=== PATIENT | male | born 1935 | race Caucasian/White ===

== ENCOUNTER 2016-11-14 01:50 | Emergency (ER) | payer MEDICARE, OTHER ==
[2016-11-14 02:12] LABS: CKMB 2.5 ng/ml (0.0-5.0); TROP-I < 0.30 NG/ML (0.00-0.30)
[2016-11-14 02:16] LABS: BASO % 0.1 % (0.2-1.2); EOS % 0.2 % (0.8-7.0); GRAN # 11.6 10_X3_uL (1.8-5.4); GRAN % 87.1 % (34.0-67.9); HEMATOCRIT 26.1 % (40-51); LYMPH # 0.5 10_X3_uL (1.3-3.6); LYMPH % 3.8 % (21.8-53.1); MEAN CORPUSCULAR HEMOGLOBIN 31.2 pg (27.0-33.0); MEAN CORPUSCULAR HGB CONC 31.8 g/dL (32.0-36.0); MEAN CORPUSCULAR VOLUME 98.1 fL (79-92); MEAN PLATELET VOLUME 10.4 fl (7.5-11.5); MONO # 1.2 10_X3_uL (0.3-0.8); MONO % 8.8 % (5.3-12.2); PLATELET COUNT 209 x10_3/uL (163-337); RED BLOOD COUNT 2.66 x10_6/uL (4.6-6.1); RED CELL DISTRIBUTION WIDTH 14.1 % (11.6-14.4); WHITE BLOOD COUNT 13.3 x10_3/uL (4.2-9.1)
[2016-11-14 02:17] LABS: HEMOGLOBIN 8.3 g/dL (13.7-17.5)
[2016-11-14 02:18] LABS: BILIRUBIN,TOTAL 1.75 mg/dL (0.0-1.0); CALCIUM 8.1 mg/dL (8.7-10.7); CREATININE 2.1 mg/dL (0.6-1.3); TOTAL PROTEIN 6.4 gm/dL (6.4-8.2)
[2016-11-14 02:21] LABS: POTASSIUM 5.6 mmol/L (3.5-5.1)
[2016-11-14 02:31] LABS: PROTHROMBIN TIME (PATIENT) > 93.60 SECONDS (9.9-11.1)
[2016-11-14 02:33] LABS: INR > 8.6 (0.9-1.1); PARTIAL THROMBOPLASTIN TIME 58.4 SECONDS (21.3-29.3)
== END 2016-11-14 02:43 | disposition short-term general hospital (02) ==
LOC: ER 01:50
PROVIDERS: General Practice
DX: I50.9 Heart failure, unspecified (principal); R41.82 Altered mental status, unspecified; I25.2 Old myocardial infarction; I67.82 Cerebral ischemia; G31.9 Degenerative disease of nervous system, unspecified; R79.89 Other specified abnormal findings of blood chemistry; R79.1 Abnormal coagulation profile; D64.9 Anemia, unspecified; R53.1 Weakness; E11.9 Type 2 diabetes mellitus without complications; Z95.0 Presence of cardiac pacemaker; Z95.2 Presence of prosthetic heart valve; Z79.01 Long term (current) use of anticoagulants
CPT/HCPCS: 36415; 70450; 80053; 82550; 82553; 85025; 85610; 85730; 93005; 96374; 99070; 99285; 99285-25